=== PATIENT | male | born 2000 | race Caucasian/White ===

== ENCOUNTER 2021-11-20 15:09 | Emergency (ER) | payer BC ==
[~2021-11-20] VITALS: Ht 190.5 cm; Wt 90.7 kg
[2021-11-20] MEDS ORDERED: KETOROLAC 30 MG/ML VIAL IVP ONE (15:30)
[2021-11-20] MEDS ORDERED: LACTATED RINGERS 1,000 ML IV SCH (15:30)
[2021-11-20 15:43] LABS: BASOPHILS % (AUTO) 0 % (0-10); EOSINOPHILS # (AUTO) 0.1 10^3/uL (0.0-0.3); EOSINOPHILS % (AUTO) 2 % (0-10); HEMATOCRIT 43 % (40-54); HEMOGLOBIN 14.6 g/dL (13.3-17.7); LYMPHOCYTES % (AUTO) 23 % (12-44); MEAN CORPUSCULAR HEMOGLOBIN 29 pg (25-34); MEAN CORPUSCULAR HGB CONC 34 g/dL (32-36); MEAN CORPUSCULAR VOLUME 86 fL (80-99); MEAN PLATELET VOLUME 10.7 fL (9.0-12.2); MONOCYTES # (AUTO) 0.7 X 10^3 (0.0-1.0); MONOCYTES % (AUTO) 15 % (0-12); NEUTROPHILS # (AUTO) 2.7 X 10^3 (1.8-7.8); NEUTROPHILS % (AUTO) 60 % (42-75); PLATELET COUNT 131 10^3/uL (130-400); WHITE BLOOD COUNT 4.5 10^3/uL (4.3-11.0)
--- NOTE | 2021-11-20 15:47 | ED EENT ---
History of Present Illness General Chief Complaint: Oral/Throat Problems Stated Complaint: TONSIL PAIN Nursing Triage Note: PT AMB TO [facility] 6 WITH COMPLAINT OF THROAT PAIN. STATES HAS BEEN TO [employer] TWICE THIS WEEK. Source: patient Exam Limitations: no limitations (VEENA MENDEZ APRN) History of Present Illness Date Seen by Provider: Nov 20, 2021 Time Seen by Provider: 15:25 Initial Comments To ER by private vehicle with reports of a sore throat. This began on 11/16/2021. He did develop some chills overnight. He saw [facility] on Wednesday and had a rapid strep swab of his throat done which was reportedly negative. However he was given a prescription for Ceftin. He then went back today for failure to improve and was tested for mono but does not know those results. No measured fevers. No cough no rhinorrhea no body aches. He has only been able to drink a few protein shakes because of the pain in his throat. He also has noticed some blood in his spit. Timing/Duration: abrupt Severity: moderate Location: throat Prearrival Treatment: no prearrival treatment Associated Symptoms: denies symptoms (VEENA MENDEZ APRN) Allergies and Home Medications Allergies Coded Allergies: No Known Drug Allergies (Unverified , 11/20/21) Patient Home Medication List Home Medication List Reviewed: Yes (VEENA MENDEZ APRN) Acyclovir (Acyclovir) 400 Mg Tablet, 400 MG PO 5XD Prescribed by: VEENA MENDEZ on 11/20/21 1548 Prednisone (Prednisone) 20 Mg Tab, 60 MG PO DAILY Prescribed by: VEENA MENDEZ on 11/20/21 1548 Review of Systems Review of Systems Constitutional: see HPI Eyes: No Symptoms Reported Ears: No Symptoms Reported Nose: no symptoms reported Mouth: no symptoms reported Throat: see HPI, pain, swelling; denies hoarse, denies aphonia, denies muffled; painful swallowing, other Respiratory: no symptoms reported Cardiovascular: no symptoms reported Musculoskeletal: no symptoms reported Skin: no symptoms reported Neurological: No Symptoms Reported Hematologic/Lymphatic: No Symptoms Reported Immunological/Allergic: no symptoms reported (VEENA MENDEZ APRN) Past Aiftwkn-Gpsxis-Qhlhot Hx Patient Social History Tobacco Use?: No Use of E-Cig and/or Vaping dev: No Substance use?: No Alcohol Use?: No Pt feels they are or have been: No (VEENA MENDEZ APRN) Immunizations Up To Date First/Initial COVID19 Vaccinat: 2020 Second COVID19 Vaccination Dorian: 2020 (VEENA MENDEZ APRN) Physical Exam Vital Signs Vital Signs - First Documented 11/20/21 15:20 Pulse 77 Resp 19 B/P (MAP) 147/86 (106) Pulse Ox 99 O2 Delivery Room Air (BLAS DURAN MD) Height, Weight, BMI Height: '" Weight: lbs. oz. kg; 24.00 BMI Method: General Appearance: WD/WN, no apparent distress Eyes: bilateral eye normal inspection, bilateral eye PERRL, bilateral eye EOMI Ears: bilateral ear auricle normal, bilateral ear canal normal, bilateral ear TM normal Mouth/Throat: pharynx tenderness, tonsillar exudate, tonsillar swelling; No trismus; other (No trismus. The uvula is not deviated there is no evidence of a tonsillar or peritonsillar abscess. The right tonsil has some whitish exudates on it. The pharynx and the left tonsil have a few small 1 to 2 mm ulcerated lesions on an erythematous base. There is some dried though recent appearing blood on the left tonsil.) Neck: No lymphadenopathy (R), No lymphadenopathy (L); other (Given the appearance of his throat there is surprisingly minimal palpable lymphadenopathy.) Cardiovascular: regular rate, rhythm, no murmur Respiratory: no respiratory distress, no accessory muscle use Gastrointestinal: normal bowel sounds, non tender, soft Neurologic/Psychiatric: alert, normal mood/affect, oriented x 3 Skin: normal color, warm/dry (VEENA MENDEZ APRN) Progress/Results/Core Measures Results/Orders Lab Results Laboratory Tests Test 11/20/21 15:33 Range/Units White Blood Count 4.5 4.3-11.0 10^3/uL Red Blood Count 4.96 4.30-5.52 10^6/uL Hemoglobin 14.6 13.3-17.7 g/dL Hematocrit 43 40-54 % Mean Corpuscular Volume 86 80-99 fL Mean Corpuscular Hemoglobin 29 25-34 pg Mean Corpuscular Hemoglobin Concent 34 32-36 g/dL Red Cell Distribution Width 12.6 10.0-14.5 % Platelet Count 131 130-400 10^3/uL Mean Platelet Volume 10.7 9.0-12.2 fL Immature Granulocyte % (Auto) 0 % Neutrophils (%) (Auto) 60 42-75 % Lymphocytes (%) (Auto) 23 12-44 % Monocytes (%) (Auto) 15 H 0-12 % Eosinophils (%) (Auto) 2 0-10 % Basophils (%) (Auto) 0 0-10 % Neutrophils # (Auto) 2.7 1.8-7.8 X 10^3 Lymphocytes # (Auto) 1.0 1.0-4.0 X 10^3 Monocytes # (Auto) 0.7 0.0-1.0 X 10^3 Eosinophils # (Auto) 0.1 0.0-0.3 10^3/uL Basophils # (Auto) 0.0 0.0-0.1 10^3/uL Immature Granulocyte # (Auto) 0.0 0.0-0.1 10^3/uL Sodium Level 136 135-145 MMOL/L Potassium Level 4.3 3.6-5.0 MMOL/L Chloride Level 103 98-107 MMOL/L Carbon Dioxide Level 21 21-32 MMOL/L Anion Gap 12 5-14 MMOL/L Blood Urea Nitrogen 20 H 7-18 MG/DL Creatinine 1.18 0.60-1.30 MG/DL Estimat Glomerular Filtration Rate 90 BUN/Creatinine Ratio 17 Glucose Level 90 70-105 MG/DL Calcium Level 9.1 8.5-10.1 MG/DL Corrected Calcium 9.0 8.5-10.1 MG/DL Total Bilirubin 0.3 0.1-1.0 MG/DL Aspartate Amino Transf (AST/SGOT) 17 5-34 U/L Alanine Aminotransferase (ALT/SGPT) 11 0-55 U/L Alkaline Phosphatase 65 40-136 U/L Total Protein 6.7 6.4-8.2 GM/DL Albumin 4.1 3.2-4.5 GM/DL Monoscreen NEGATIVE NEGATIVE (BLAS DURAN MD) Medications Given in ED Current Medications Medications Dose Ordered Sig/Nick Route Start Time Stop Time Status Last Admin Dose Admin Al Hydrox/Mg Hydrox/Simethicone 30 ml ONCE ONCE PO 11/20/21 17:00 11/20/21 17:01 DC 11/20/21 16:54 30 ML Dexamethasone Sodium Phosphate 10 mg ONCE ONCE IV 11/20/21 15:30 11/20/21 15:31 DC 11/20/21 15:43 10 MG Ketorolac Tromethamine 15 mg ONCE ONCE IVP 11/20/21 15:30 11/20/21 15:31 DC 11/20/21 15:43 15 MG Lidocaine HCl 15 ml ONCE ONCE PO 11/20/21 17:00 11/20/21 17:01 DC 11/20/21 16:54 15 ML (BLAS DURAN MD) Vital Signs/I&O 11/20/21 11/20/21 15:20 17:00 Pulse 77 88 Resp 19 16 B/P (MAP) 147/86 (106) 128/78 Pulse Ox 99 98 O2 Delivery Room Air Room Air (BLAS DURAN MD) Blood Pressure Mean: 106 Departure Communication (Admissions) I did a repeat throat culture here, swabbed his throat for gonorrhea and chlamydia as well. We will do some IV fluids, Toradol and dexamethasone. Advised him to get some [id number] Cepacol lozenges which contain benzocaine for symptom relief. (VEENA MENDEZ APRN) Impression Primary Impression: Pharyngitis Disposition: 01 HOME, SELF-CARE Condition: Stable Departure-Patient Inst. Decision time for Depature: 15:46 (VEENA MENDEZ APRN) Patient Instructions: Sore Throat in Adults Add. Discharge Instructions: 1. Its most likely that the cause of your sore throat is from a virus. However, has not been proven as of yet so until the throat culture comes back you should continue the antibiotics. Also add the oral acyclovir (antiviral) and the oral steroid (prednisone). Follow-up with [facility]. Get yjjn-[id number] Cepacol lozenges at [facility] or [facility] for symptom relief. All discharge instructions reviewed with patient and/or family. Voiced understanding. Scripts Prednisone (Prednisone) 20 Mg Tab 60 MG PO DAILY, #9 TAB Prov: VEENA MENDEZ APRN 11/20/21 Acyclovir (Acyclovir) 400 Mg Tablet 400 MG PO 5XD, #35 TAB Prov: VEENA MENDEZ APRN 11/20/21 Work/School Note: Work Release Form Date Seen in the Emergency Department: Nov 20, 2021 Return to Work: Nov 24, 2021 ATTENDING PHYSICIAN NOTE: I was physically present as attending physician in the emergency department during the care of this patient, but I was not directly involved in the decision making or delivery of care for this patient. (BLAS DURAN MD) VEENA MENDEZ APRN Nov 20, 2021 15:47 BLAS DURAN MD Nov 20, 2021 17:35
[2021-11-20] MEDS ORDERED: PRD20T PO (15:48)
[2021-11-20] MEDS ORDERED: ACYC400T21 PO (15:48)
[2021-11-20 16:09] LABS: ALBUMIN 4.1 GM/DL (3.2-4.5); POTASSIUM 4.3 MMOL/L (3.6-5.0)
[2021-11-20 16:11] LABS: CALCIUM 9.1 MG/DL (8.5-10.1)
[2021-11-20 16:12] LABS: TOTAL PROTEIN 6.7 GM/DL (6.4-8.2)
[2021-11-20 16:14] LABS: BILIRUBIN,TOTAL 0.3 MG/DL (0.1-1.0)
[2021-11-20 16:15] LABS: CREATININE SERUM 1.18 MG/DL (0.60-1.30)
[2021-11-20 17:00] VITALS: BP 128/78
[2021-11-20] MEDS ORDERED: LIDOCAINE 2% VISCOUS 15 ML UDC PO ONE (17:00)
[2021-11-20] MEDS ORDERED: ANTACID SUSP 30 ML UDC (MYLANTA) PO ONE (17:00)
== END 2021-11-20 17:00 | disposition home or self-care (01) ==
LOC: ER 15:12
DX: J02.9 Acute pharyngitis, unspecified (principal)
CPT/HCPCS: 36415; 80053; 85025; 86308; 87070; 87491; 87591; 99283

== ENCOUNTER 2022-06-08 06:17 | Outpatient (CLI) | payer BC ==
[~2022-06-08] VITALS: Ht 190.5 cm; Wt 90.5 kg
[~2022-06-08 06:17] MED LIST: ACYC400T21 PO; PRD20T PO
[2022-06-08] MEDS ORDERED: LORA10TA7 PO (15:01)
[2022-06-08] MEDS ORDERED: MONT10TA21 PO (15:01)
[2022-06-08] MEDS ORDERED: RT-ALBUINH IH (15:01)
== END 2022-06-08 15:18 | disposition home or self-care (01) ==
LOC: PREOP 06:17
PROVIDERS: ATTEND Surgery
DX: Z01.818 Encounter for other preprocedural examination (principal)

== ENCOUNTER 2022-06-10 06:58 | Day surgery (SDC) | payer BC ==
[~2022-06-10] VITALS: Ht 190.5 cm; Wt 90.5 kg
[2022-06-10] VITALS (11 sets, daily range): BP systolic 117–153; BP diastolic 73–101
[~2022-06-10 06:58] MED LIST changes: +LORA10TA7 PO; +MONT10TA21 PO; +RT-ALBUINH IH
[2022-06-10] MEDS ORDERED: ceFAZolin INJECTION 2,000 MG in NS (IVPB) 50 ML IV ONE (07:15)
[2022-06-10] MEDS ORDERED: LIDOCAINE/EPI 2% 1:200,00 (XYLOCAINE) 10 ML VIAL ONE (07:43)
[2022-06-10] MEDS ORDERED: MIDAZOLAM 2 MG/2 ML (VERSED) VIAL IV ONE (07:45)
[2022-06-10] MEDS: LACTATED RINGERS 1,000 ML IV PRN ×2 (08:05→09:30)
--- NOTE | 2022-06-10 08:31 | Progress Note-Pre Operative ---
Pre-Operative Progress Note Date of Available H&P: May 26, 2022 Date H&P Reviewed: Jun 10, 2022 Time H&P Reviewed: 08:18 History & Physical: H&P Reviewed, Patient Examed, No changes noted Pre-Operative Diagnosis: Left inguinal hernia GUILLERMINA LAZCANO DO Jun 10, 2022 08:31
[2022-06-10] MEDS ORDERED: MIDAZOLAM 2 MG/2 ML (VERSED) VIAL ONE (08:32)
[2022-06-10] MEDS ORDERED: ONDANSETRON 4 MG/2 ML (SDV) Z0FRAN ONE (08:32)
[2022-06-10] MEDS ORDERED: LIDOCAINE PF 2% 5 ML (XYLOCAINE) VIAL ONE (08:32)
[2022-06-10] MEDS ORDERED: GLYCOPYRROLATE 0.2 MG/ML (ROBINUL) 2 ML VIAL ONE (08:32)
[2022-06-10] MEDS ORDERED: ROCURONIUM 10 MG/ML 5 ML SYRINGE IV ONE ×2 (08:32→09:06)
[2022-06-10] MEDS ORDERED: NEOSTIGMINE 3 MG/3 ML VIAL ONE (08:32)
[2022-06-10] MEDS ORDERED: fentaNYL INJ 100 MCG/2 ML AMP ONE (08:32)
[2022-06-10] MEDS ORDERED: proPOfol 200 MG/20 ML (DIPRIVAN) VIAL IV ONE (08:32)
[2022-06-10] MEDS ORDERED: HYDROmorphone 2 MG/ML VIAL (DILAUDID) ONE (10:18)
--- NOTE | 2022-06-10 10:20 | Progress Note-Post Operative ---
Post-Operative Progess Note Surgeon (s)/Needle Punch Machine Operator Helper (s) Surgeon GUILLERMINA LAZCANO DO Needle Punch Machine Operator Helper: [place] Pre-Operative Diagnosis Left inguinal hernia Post-Operative Diagnosis Left Inguinal hernia - Indirect cord lipoma laxity of right inguinal area Procedure & Operative Findings Date of Procedure 06/10/22 Procedure Performed/Findings After informed consent was obtained, the patient was brought to the operating room and placed on the operating table in a supine position. He was sterilely prepped and draped in a normal fashion. Local lidocaine was used to infiltrate the skin above the umbilicus. I made an incision with #11 blade, carried down to the skin into subcutaneous tissue and then deepened down the subcutaneous tissue with Bovie electrocautery down to the fascia. Fascia was incised with Bovie electrocautery and bluntly entered the abdomen, swept a finger around, placed 0 Vicryl [id number] suture and placed limited trocar port under direct visualization. Created pneumoperitoneum, able to visualize the hernia and took a picture of this and then placed two 8 mm ports about 10 cm on either side of the midline port using a local lidocaine, 11 blade for stab incision and then advanced the robotic port under direct visualization. Once this was in, I then placed the patient in Trendelenburg and then placed the working instruments, the fenestrated bipolar and the scissors. Looked on the left side and saw an indirect inguinal hernia. I could see a laxity of the tissue on the right side. Next, I came across the peritoneum approximately 8 cm away from the hernia defect, going across laterally starting lateral about 17cm and cutting toward the median umbilical ligament. I then carefully dissected the visceral peritoneum away and down and then in the midline, went through the parietal side and dissected down to the pubic tubercle, dissecting this down carefully pushing the peritoneum away, I was able to then visualize the pubic tubercle and Jose's ligament. I went 2 cm posterior/inferior and at this point, we then had a critical view of the dissection, able to dissect 2 cm across the midline to the left side, 2 cm posterior to the Jose's ligament, able to then parietalize the vas deferens and spermatic vessels right at the groove between Jose's and iliac vein and able to dissect and make sure there was no peritoneum between those two, able to see the indirect hernia space, took a picture of this, looked at the femoral space (no hernia seen). Then I carefully teased out the hernia sac and could visualize the indirect hernia space. Next I looked on the cord and cord structures. There was a small cord lipoma that I was able to reduce and cut off. This was then removed through the port to get it out of the peritoneal space. I could clearly see the inguinal canal and the indirect space. Next, I carried the posterior lateral dissection all the way out and then placed a 12 x 17 cm Midwieght Bard 3DMax mesh. It laid in nicely, covered the hernia defect and the rest of the area. It was above the peritoneum, sutured it at the pubic tubercle with a 3-0 Vicryl suture and out laterally with the same suture; tied this off. This appeared to lay in very nicely. I then brought down the pneumoperitoneum to about 8 mmHg and then started closing the peritoneum. Started laterally and used a 2-0 V-lock barbed suture to start a running stitch to close the peritoneum. This was closed nicely, took a picture of the closure at this point, then removed both needles had switched to a suture road oiling truck driver from the scissors. The patient was then placed back supine, removed all ports under direct visualiz ation, allowed pneumoperitoneum to escape and then closed the supraumbilical incision, closing the fascia with 0 Vicryl suture previously placed. Copiously irrigated all incisions and then closed the two small 8 mm incisions with two interrupted 4-0 undyed Monocryl subcuticular stitches and closed the supraumbilical incision with three interrupted undyed Monocryl subcuticular stitch. Area was cleaned and dried. Dermabond was placed. The patient tolerated the procedure. The sponge, instrument and needle counts were correct at the end of the case. Dr. Mathew assisted during this surgery by making incisions, closing incisions, helping to identify anatomy and passing/retrieving suture and needles. Anesthesia Type GET Estimated Blood Loss Estimated blood loss (mL): scant Specimens/Packing Specimens Removed cord lipoma GUILLERMINA LAZCANO DO Jun 10, 2022 10:20
[2022-06-10] MEDS ORDERED: ACHD5005 PO (10:21)
--- NOTE | 2022-06-10 10:22 | Discharge Inst-Surgical ---
Discharge Inst-Surgical Depart Medication/Instructions New, Converted or Re-Newed RX: Transmitted to Pharmacy Patient Instructions Follow up Appt: Make appointment for 1 week. [phone] Instructions: No lifting greater than 20 pounds. No strenuous activity. May shower in 24 hours, no tub bath or soaking. Use incentive spirometer at home as directed. No Smoking Skin/Wound Care: May remove bandages in am. You need to leave the Dermabond on incision it will fall off on it's own. Symptoms to Report: Appetite Changes, Extremity Discoloration, Numbness/Tingling, Swelling Increased, Bleeding Excessive, Eyesight Changes, Pain Increased, Urine Color Change, Constipation(Persistent), Fever over 101 degree F, Pain/Pressure in chest, Urinating Difficulty, Cough Up/Vomit Blood, Heart Beat Irreg/Pounding, Pain/Pressure in jaw, Cramps in feet or legs, Lightheadedness, Pain/Pressure in shoulder, Diarrhea(Persistent), Memory Changes Suddenly, Questions/Concerns, Weight gain consecutive days, Dizziness/Fainting, Nausea/Vomiting, Shortness of Breath, Weight gain over 2 pounds If questions or concerns contact your physician Or seek help at emergency department. Activity Activity as Tolerated: Yes Activity Instructions: Avoid Stress to Incision Diet Discharge Diet: No Restrictions Diet After 24 Hours: Clear Liquid if Nauseous If Any Problems/Questions/Issu: Contact Your Physician, Go to Emergency Room Skin/Wound Care Infection Signs and Symptoms: Increased Redness, Foul Odor of Wound, Increased Drainage, Skin Itchy or Has a Rash, Increased Swelling, Temperature Above 101 F Wound Care Comment: heating pad to shoulder or neck for pain tonight Bathing Instructions: Shower Stitches/[place]/Dermabond Dis: Dermabond Ice Pack: Ice On and Off Site GUILLERMINA LAZCANO DO Jun 10, 2022 10:22
[2022-06-10] MEDS ORDERED: SEVOFLURANE (ULTANE) 15 ML INHAL SOLN ONE (10:24)
[2022-06-10] MEDS ORDERED: ONDANSETRON 4 MG/2 ML (SDV) Z0FRAN IVP PRN (10:45)
[2022-06-10] MEDS ORDERED: morphine INJ 10 MG/ML 1ML (SYR OR VIAL) IVP ONE (10:45)
[2022-06-10] MEDS ORDERED: HYDROmorphone 2 MG/ML VIAL (DILAUDID) IV ONE (10:45)
[2022-06-10] MEDS ORDERED: HYDROcodone/APAP 5 MG/325 MG (LORTAB) TAB PO ONE (11:45)
[2022-06-10] MEDS ORDERED: HYDROcodone/APAP 5 MG/325 MG (LORTAB) TAB ONE (11:48)
--- NOTE | 2022-06-10 13:07 | Anesthesia-General Post-Op ---
General Patient Condition Mental Status/LOC: Same as Preop Cardiovascular: Satisfactory Nausea/Vomiting: Absent Respiratory: Satisfactory Pain: Controlled Complications: Absent Post Op Complications Complications None Follow Up Care/Instructions Patient Instructions None needed. Anesthesia/Patient Condition Patient Condition Patient is doing well, no complaints, stable vital signs, no apparent adverse anesthesia problems. No complications reported per nursing. MARCELLE CATHERINE DO Jun 10, 2022 13:07
== END 2022-06-10 13:26 | disposition home or self-care (01) ==
LOC: SDC 06:58
PROVIDERS: ATTEND Surgery
DX: K40.90 Unilateral inguinal hernia, without obstruction or gangrene, not specified as recurrent (principal); F17.220 Nicotine dependence, chewing tobacco, uncomplicated; D17.6 Benign lipomatous neoplasm of spermatic cord
CPT/HCPCS: 87081; 94664

== ENCOUNTER 2022-06-16 21:50 | Emergency (ER) | payer BC ==
[~2022-06-16] VITALS: Ht 190.5 cm; Wt 88.5 kg
[~2022-06-16 21:50] MED LIST changes: +ACHD5005 PO
--- NOTE | 2022-06-16 22:17 | ED Integumentary General ---
General Chief Complaint: Skin/Wound Problems Stated Complaint: HERNIA SURGERY SITE CAME OPEN Nursing Triage Note: pt ambulatory to room. states he had inguinal hernia sx on wednesday. pt believes he sneezed and incision at umbilicus began to bleed. pt states he has no increased pain, but just noticed the bleeding and came to get glued back together. Source: patient Exam Limitations: no limitations History of Present Illness Date Seen by Provider: Jun 16, 2022 Time Seen by Provider: 21:58 Initial Comments This is a 22-year-old male who presented to the ER with concerns of tearing his umbilical hernia open. He had umbilical hernia repair by Dr. France on 06/10, tonight while at a baseball game he sneezed and believes he may have slightly tore open the incision site. Site began to bleed, applied pressure, His motor coach driver applied to antibiotic and Band-Aid to the site. Denies any pain. No fever, chills, cough or shortness of breath, nausea, vomiting, abdominal pain. Allergies and Home Medications Allergies Coded Allergies: No Known Drug Allergies (Unverified , 06/08/22) Patient Home Medication List Home Medication List Reviewed: Yes Albuterol Sulfate (Proair Hfa) 1 Puff Puff, 2 PUFF IH Q4H, (Reported) Entered as Reported by: FERNANDEZ DE OLIVEIRA on 06/08/22 1501 Hydrocodone Bit/Acetaminophen (HYDROcodone/APAP 5 MG/325 MG TAB) 1 Tab Tab, 1 TAB PO Q8H PRN for PAIN-MODERATE (5-7) Prescribed by: GUILLERMINA LAZCANO on 06/10/22 1021 Loratadine (Loratadine) 10 Mg Tablet, 10 MG PO DAILY, (Reported) Entered as Reported by: FERNANDEZ DE OLIVEIRA on 06/08/22 1501 Montelukast Sodium (Singulair) 10 Mg Tablet, 10 MG PO DAILY, (Reported) Entered as Reported by: FERNANDEZ DE OLIVEIRA on 06/08/22 1501 Review of Systems Review of Systems Constitutional: see HPI Past Somtaig-Ltrnie-Zdalvg Hx Patient Social History Tobacco Use?: Yes Smokeless Tobacco Frequency: Current Everyday User Use of E-Cig and/or Vaping dev: No Substance use?: No Alcohol Use?: No Immunizations Up To Date Influenza Vaccine Up-to-Date: No; Not Current First/Initial COVID19 Vaccinat: 11/2020 Second COVID19 Vaccination Dorian: 12/2020 Seasonal Allergies Seasonal Allergies: Yes Past Medical History Surgeries: No Respiratory: Yes (R/T ALLERGIES) Asthma Currently Using CPAP: No Currently Using BIPAP: No Cardiac: No Neurological: No Genitourinary: No Gastrointestinal: No Musculoskeletal: No Endocrine: No HEENT: No Cancer: No Psychosocial: No Integumentary: Yes Eczema, Psoriasis Blood Disorders: No Physical Exam Vital Signs Vital Signs - First Documented 06/16/22 21:57 Temp 36.5 Pulse 70 Resp 16 B/P (MAP) 147/93 (111) Pulse Ox 99 Capillary Refill : General Appearance: WD/WN, no apparent distress HEENT: PERRL/EOMI, normal ENT inspection Neck: full range of motion, normal inspection Cardiovascular: regular rate, rhythm, no murmur Respiratory: lungs clear, normal breath sounds Gastrointestinal: normal bowel sounds, non tender, soft; No no organomegaly, No no pulsatile mass, No distended, No guarding, No tenderness, No mass; other (neg jenny ) Extremities: normal range of motion, normal inspection Neurologic/Psychiatric: no motor/sensory deficits, alert, normal mood/affect, oriented x 3 Skin: normal color, warm/dry; No ecchymosis Skin Problem Location: other (mid abd ) Skin Problem Character: linear Procedures/Interventions Other Closure Supply: Wound Adhesive Progress/Results/Core Measures Results/Orders Vital Signs/I&O 06/16/22 06/16/22 21:57 22:37 Temp 36.5 Pulse 70 70 Resp 16 16 B/P (MAP) 147/93 (111) 147/93 Pulse Ox 99 99 Blood Pressure Mean: 111 Progress Progress Note : Progress Note Sneezed 2 hours prior to arrival and had small opening on distal end of mid abdominal surgical incision. Dry blood around site. No evident of incision disruption. No bruising, swelling, or pain to surrounding area. Cleansed with Chlorhexadine and applied new layer of Dermabond. Encouraged splinting abdomen when sneezing and coughing. Has follow up with F[facility] on . Discharge POC reviewed and he is agreeable with plan. Departure Impression Primary Impression: Opening of surgical site Disposition: HOME, SELF-CARE Condition: Improved Departure-Patient Inst. Decision time for Depature: 22:15 Referrals: NO,LOCAL PHYSICIAN (PCP) Primary Care Physician Patient Instructions: NO INSTRUCTIONS GIVEN Add. Discharge Instructions: Plan: 1. Continue precautions as outlined in your discharge paperwork per Dr. Lazcano 2. Monitor for any increased redness, swelling, pain or drainage from site. You will need to notify Dr. Lazcano if any symptoms develop. 3. Keep follow-up as scheduled on . 4. Return to the ER if you have any abdominal pain, bleeding, any signs of infection or any other new or concerning symptoms. All discharge instructions reviewed with patient and/or family. Voiced understanding. REGINA REDDY SUPERVISOR COMPOSING ROOM Jun 16, 2022 22:17
[2022-06-16 22:37] VITALS: BP 147/93
== END 2022-06-16 22:37 | disposition home or self-care (01) ==
LOC: EDUNIT# 21:50 → ER 21:51
DX: K91.840 Postprocedural hemorrhage of a digestive system organ or structure following a digestive system procedure (principal); F17.200 Nicotine dependence, unspecified, uncomplicated